=== PATIENT | male | born 1955 | race Caucasian/White ===

== ENCOUNTER 2019-09-26 08:50 | Outpatient (CLI) | payer OTHER ==
--- NOTE | 2019-09-26 11:48 | MRI Report ---
PROCEDURE: Shoulder RT W/O INDICATIONS: Shoulder pain, history of fall. TECHNIQUE: Noncontrast oblique coronal T2 fast spin echo with fat saturation, oblique sagittal T1 spin echo and T2 fast spin echo with fat saturation, axial T1 spin echo and T2 fast spin echo with fat saturation t hrough the shoulder. COMPARISON: None. FINDINGS: Image quality: Excellent. Rotator cuff: There is mild T2 signal elevation within the anterior, mid, and posterior supraspinatu s tendon at the humeral insertion site, indicating tendinopathy. There is superimposed low-grade flui d signal intensity within the mid and posterior supraspinatus tendon at the humeral insertion site ex tending to the musculotendinous junction, indicating low-grade partial thickness tearing. There is a moderate grade region of fluid signal intensity within the upper subscapularis tendon at the humeral insertion site extending to the musculotendinous junction. The supraspinatus, infraspinatus, and subs capularis tendons appear intact throughout. No rotator cuff muscle atrophy on sagittal images. Bones and bursae: There is a mildly displaced fracture of the distal clavicle, with severe surroundin g ill-defined STIR signal elevation in the distal clavicle. Severe acromioclavicular joint degenerati on. The acromion demonstrates conventional anatomy, without an os acromiale. No pathologic subacrom ial/subdeltoid bursal fluid is present. Capsule and soft tissues: There is linear high T2 signal intensity within the posterior labrum. The l kristian head of the biceps tendon demonstrates normal location and morphology. The rotator interval appe ars normal, without fibrosis. The coracohumeral ligament is normal in thickness. IMPRESSION: 1. Mildly displaced distal clavicular fracture, with surrounding bony contusion. 2. Supraspinatus tendinopathy with superimposed low-grade partial thickness articular surface tear. 3. Moderate grade partial-thickness tear of the upper subscapularis tendon. 4. Possible posterior labral tearing. Reviewed by: Alessio Jain MD on 09/26/2019 10:47 AM [facility] Approved by: Alessio Jain MD on 09/26/2019 10:47 AM [facility] Station ID: [id number]
== END 2019-09-26 08:51 | disposition home or self-care (01) ==
LOC: DI 08:50
PROVIDERS: ATTEND Family Medicine
DX: S42.031A Displaced fracture of lateral end of right clavicle, initial encounter for closed fracture (principal); M75.101 Unspecified rotator cuff tear or rupture of right shoulder, not specified as traumatic; S43.491A Other sprain of right shoulder joint, initial encounter

== ENCOUNTER 2021-06-30 08:45 | Outpatient (CLI) | payer MEDICARE, OTHER ==
--- NOTE | 2021-06-30 14:52 | Ultrasound Report ---
PROCEDURE: Aorta Screening INDICATIONS: FORMER SMOKER TECHNIQUE: Real time scanning was performed of the aorta and iliac arteries, with image documentatio n. COMPARISON: None FINDINGS: Aorta: Proximal aortic diameter measures 3.1 x 3.0 cm. Mid-aorta measures 1.9 x 2.0 cm. Distal aor tic diameter is 1.3 x 1.4 cm. Iliac arteries: Right common iliac artery measures 1.1 cm. Left common iliac artery measures 1.1 cm . IMPRESSION: 3.1 cm proximal abdominal aortic aneurysm. Reviewed by: Estefani Mckinnon MD, PhD on 06/30/2021 2:51 PM PDT Approved by: Estefani Mckinnon MD, PhD on 06/30/2021 2:51 PM PDT Station ID: [id number]
== END 2021-06-30 08:46 | disposition home or self-care (01) ==
LOC: DI 08:45
PROVIDERS: ATTEND Student in an Organized Health Care Education/Training Program
DX: Z13.6 Encounter for screening for cardiovascular disorders (principal); Z87.891 Personal history of nicotine dependence; I71.4 Abdominal aortic aneurysm, without rupture

== ENCOUNTER 2021-11-08 08:00 | Outpatient (CLI) | payer MEDICARE, OTHER ==
--- NOTE | 2021-11-08 17:05 | XRAY Report ---
PROCEDURE: Shoulder 2 View RT INDICATIONS: SCAPULA FX TECHNIQUE: 2 views of the shoulder were acquired. COMPARISON: 10/11/2021. FINDINGS: Bones: Medial right clavicular fracture is again seen. Patient is no right scapular wing fracture is also noted with area of sclerosis suggestive of healing. Mild to moderate acromioclavicular joint and glenohumeral joint osteoarthritic changes are seen. No suspicious bony lesions. Visualized ribs arias ear intact. Soft tissues: No suspicious soft tissue calcifications. IMPRESSION: Healing right scapular wing fracture and medial right clavicular fracture. No new fractu re or dislocation. Right shoulder joint osteoarthritis. Reviewed by: Ralph Bansal MD on 11/08/2021 5:04 PM PDT Approved by: Ralph Bansal MD on 11/08/2021 5:04 PM PDT Station ID: [id number]
--- NOTE | 2021-11-08 18:38 | XRAY Report ---
PROCEDURE: Clavicle RT INDICATIONS: CLAVICLE FX TECHNIQUE: 2 views of the clavicle were acquired. COMPARISON: None. FINDINGS: Bones: Persistent fracture through the proximal clavicle without change in the prior exam. Periosteal reaction is noted along the inferior cortex. Acromioclavicular and sternoclavicular joints unremarka ble. Soft tissues: No suspicious soft tissue calcifications. IMPRESSION: Persistent proximal right clavicular fracture, without change from prior exam Reviewed by: Uli Martin MD on 11/08/2021 5:37 PM [facility] Approved by: Uli Martin MD on 11/08/2021 5:37 PM [facility] Station ID: [id number]
== END 2021-11-08 23:59 | disposition home or self-care (01) ==
LOC: DI.WOS 08:00
PROVIDERS: ATTEND Physician Assistant Surgical
DX: S42.191D Fracture of other part of scapula, right shoulder, subsequent encounter for fracture with routine healing (principal); S42.001D Fracture of unspecified part of right clavicle, subsequent encounter for fracture with routine healing; M19.011 Primary osteoarthritis, right shoulder

== ENCOUNTER 2021-12-06 08:00 | Outpatient (CLI) | payer MEDICARE, OTHER ==
--- NOTE | 2021-12-06 12:50 | XRAY Report ---
PROCEDURE: Shoulder 2 View RT INDICATIONS: SCAPULA FRACTURE RIGHT TECHNIQUE: 2 views of the shoulder were acquired. COMPARISON: Right shoulder radiographs 11/08/2021, 10/04/2021 FINDINGS: Bones: Mild sclerosis and periosteal new bone formation are seen at the lateral aspect of the scapula r body, consistent with progressive healing changes related to the previously seen fracture. Alignmen t does not appear significant changed. Medial clavicular shaft fracture is also noted. Soft tissues: No suspicious soft tissue calcifications. IMPRESSION: Progressive healing changes involving the previously seen scapular wing fracture and med ial clavicular fracture with unchanged alignment. Reviewed by: Andres Colon MD on 12/06/2021 12:48 PM PDT Approved by: Andres Colon MD on 12/06/2021 12:48 PM PDT Station ID: [id number]
--- NOTE | 2021-12-06 12:51 | XRAY Report ---
PROCEDURE: Clavicle RT INDICATIONS: CLAVICLE FX RIGHT TECHNIQUE: 2 views of the clavicle were acquired. COMPARISON: Right clavicular fracture 11/08/2021, 10/11/2021, 10/04/2021. FINDINGS: Bones: Medial clavicular shaft fracture again seen with mild anterior angulation. There is periosteal new bone formation, consistent with progressive healing changes. No suspicious bony lesions. Soft tissues: No suspicious soft tissue calcifications. IMPRESSION: Progressive healing changes involving the medial right clavicular fracture with unchanged alignment. Reviewed by: Andres Colon MD on 12/06/2021 12:50 PM PDT Approved by: Andres Colon MD on 12/06/2021 12:50 PM PDT Station ID: [id number]
== END 2021-12-06 23:59 | disposition home or self-care (01) ==
LOC: DI.WOS 08:00
PROVIDERS: ATTEND Physician Assistant Surgical
DX: S42.021D Displaced fracture of shaft of right clavicle, subsequent encounter for fracture with routine healing (principal); S42.191D Fracture of other part of scapula, right shoulder, subsequent encounter for fracture with routine healing

== ENCOUNTER 2022-01-17 11:24 | Outpatient (CLI) | payer MEDICARE, OTHER ==
--- NOTE | 2022-01-17 16:41 | XRAY Report ---
PROCEDURE: Clavicle RT INDICATIONS: RIGHT CLAVICLE FRACTURE TECHNIQUE: 2 views of the clavicle were acquired. COMPARISON: X-ray right shoulder, 01/17/2022, 12/06/2021, 11/08/2009 20/2 and 10/04/2021. X-ray right clavicle, 12/06/2021, 11/08/2021 and 10/04/2009 22. FINDINGS: Bones: There is a proximal clavicular shaft fracture with mild superior angulation. There is increase d callus formation. No suspicious bony lesions. Soft tissues: No suspicious soft tissue calcifications. IMPRESSION: Healing proximal clavicular shaft fracture. Reviewed by: Julia Vance MD on 01/17/2022 4:40 PM PST Approved by: Julia Vance MD on 01/17/2022 4:40 PM PST Station ID: [id number]
--- NOTE | 2022-01-17 16:55 | XRAY Report ---
PROCEDURE: Shoulder 2 View RT INDICATIONS: RIGHT SCAPULA FRACTURE TECHNIQUE: 2 views of the shoulder were acquired. COMPARISON: X-ray right shoulder 12/06/2021, 11/08/2021, 10/11/2021 and 10/04/2021. FINDINGS: Bones: There is a displaced fracture involving the scapular subscapular wing with displacement. Heali ng proximal clavicular fracture is noted. No suspicious bony lesions. Visualized ribs appear intact. Soft tissues: No suspicious soft tissue calcifications. IMPRESSION: 1. Healing fracture of the scapular wing and proximal clavicle. Reviewed by: Julia Vance MD on 01/17/2022 4:54 PM PST Approved by: Julia Vance MD on 01/17/2022 4:54 PM PST Station ID: [id number]
== END 2022-01-17 11:25 | disposition home or self-care (01) ==
LOC: DI.WOS 11:24
PROVIDERS: ATTEND Physician Assistant Surgical
DX: S42.021D Displaced fracture of shaft of right clavicle, subsequent encounter for fracture with routine healing (principal); S42.191D Fracture of other part of scapula, right shoulder, subsequent encounter for fracture with routine healing

== ENCOUNTER 2022-03-16 | Outpatient (CLI) | payer MEDICARE, OTHER ==
--- NOTE | 2022-03-17 10:27 | XRAY Report ---
PROCEDURE: Shoulder 2 View RT INDICATIONS: RIGHT SCAPULA FRACTURE TECHNIQUE: 2 views of the shoulder were acquired. COMPARISON: Right shoulder radiographs 01/17/2022, 12/06/2021, 10/04/2021 FINDINGS: Bones: Previously demonstrated right scapular fracture is not well-visualized. No definite new/inter payton fracture identified. No evidence of glenohumeral joint dislocation. Degenerative changes of the A C joint are present. Soft tissues: No suspicious soft tissue calcifications. IMPRESSION: Previously demonstrated right scapular fracture is not well-visualized. No definite new/ interval fracture identified. Reviewed by: Andres Ramesh MD on 03/17/2022 10:26 AM [facility] Approved by: Andres Ramesh MD on 03/17/2022 10:26 AM [facility] Station ID: [id number]
--- NOTE | 2022-03-17 10:30 | XRAY Report ---
PROCEDURE: Clavicle RT INDICATIONS: RIGHT CLAVICLE FRACTURE TECHNIQUE: 2 views of the clavicle were acquired. COMPARISON: None. FINDINGS: Bones: Previous fracture at the medial third of the right clavicle is not well visualized, could be d ue to progression of healing versus overlap of adjacent bony structures. Alignment appears similar to before. No definite new/interval abnormality. Soft tissues: No suspicious soft tissue calcifications. IMPRESSION: Previous fracture at the medial third of the right clavicle is not well visualized, could be due to p rogression of healing versus overlap of adjacent bony structures. Alignment appears similar to before . No definite new/interval abnormality. Reviewed by: Andres Ramesh MD on 03/17/2022 10:29 AM PST Approved by: Andres Ramesh MD on 03/17/2022 10:29 AM PST Station ID: [id number]
== END 2022-03-16 10:00 | disposition home or self-care (01) ==
LOC: DI.WOS
PROVIDERS: ATTEND Physician Assistant Surgical
DX: S42.191A Fracture of other part of scapula, right shoulder, initial encounter for closed fracture (principal); S42.001A Fracture of unspecified part of right clavicle, initial encounter for closed fracture

== ENCOUNTER 2022-03-22 09:26 | Outpatient (CLI) | payer MEDICARE, OTHER ==
--- NOTE | 2022-03-22 12:52 | CT Report ---
PROCEDURE: UPPER EXTREMITY WO - RT INDICATIONS: FX OF CLAVICLE TECHNIQUE: Noncontrast 2 mm axial sections were acquired through the elbow joint, with coronal and sagittal refo rmats. For radiation dose reduction, the following was used: automated exposure control, adjustment of mA and/or kV according to patient size. COMPARISON: Right shoulder and clavicle radiographs 03/16/2022, 01/17/2022, 10/04/2021 FINDINGS: Image quality: Excellent. Bones: Mildly displaced fracture is seen at the medial third of the right clavicular shaft. There is mild inferior and anterior displacement of the distal shaft fragment by less than 1 shaft width. Mil d osseous resorption is seen along the fracture line in the indicate early healing changes, although no osseous bridging is seen. A few small comminuted osseous fragments are seen along the fracture guy e. Moderate acromioclavicular joint osteoarthrosis old healed right-sided rib fractures are noted. Th ere is a healed fracture of the scapular body. Soft tissues: The musculature surrounding the shoulder is normal in bulk. Chronic interstitial berry es are seen at the right lung apex. IMPRESSION: Mildly displaced right medial clavicular shaft fracture is seen without osseous bridging . Recommend correlation for possible nonunion. Reviewed by: Andres Colon MD on 03/22/2022 12:51 PM PST Approved by: Andres Colon MD on 03/22/2022 12:51 PM PST Station ID: [id number]
== END 2022-03-22 09:27 | disposition home or self-care (01) ==
LOC: DI 09:26
PROVIDERS: ATTEND Physician Assistant Surgical
DX: S42.021A Displaced fracture of shaft of right clavicle, initial encounter for closed fracture (principal)

== ENCOUNTER 2022-07-12 16:48 | Outpatient (CLI) | payer MEDICARE, OTHER ==
--- NOTE | 2022-07-12 15:59 | XRAY Report ---
PROCEDURE: Clavicle RT INDICATIONS: RIGHT CLAVICLE FRACTURE TECHNIQUE: 2 views of the clavicle were acquired. COMPARISON: Right clavicle radiographs 03/16/2022, CT right shoulder 03/22/2022 FINDINGS: Bones: Redemonstrated fracture of the medial third of the right clavicle. There is approximately one shaft width inferior displacement of the lateral fragment. This appears similar to slightly increase d compared to prior radiographs, could be positional. Soft tissues: No suspicious soft tissue calcifications . IMPRESSION: Redemonstrated medial right clavicle fracture, possible increase in fracture fragment distraction. Reviewed by: Andres Ramesh MD on 07/12/2022 3:58 PM PDT Approved by: Andres Ramesh MD on 07/12/2022 3:58 PM PDT Station ID: [id number]
== END 2022-07-12 16:51 | disposition home or self-care (01) ==
LOC: DI.WOS 16:48
PROVIDERS: ATTEND Orthopaedic Surgery
DX: S42.001A Fracture of unspecified part of right clavicle, initial encounter for closed fracture (principal)